=== PATIENT | male | born 1955 ===

== ENCOUNTER → 2016-04-13 | Outpatient (CLI) | payer OTHER ==
--- NOTE | 2016-04-13 11:51 | US ---
Scrotal Ultrasound History: Right testicular pain for one year, mild swelling. Comparison: None available. Findings: Right: The right testicle has homogeneous echotexture with no discrete masses, measuring 4.9 x 3.1 x 2.3 cm. Normal arterial blood flow is present in the testicle. The right epididymis is mildly hypoech oic, which can be seen with prior vasectomy. There is no hydrocele or varicocele. Left: The left testicle measures 4.1 x 3.1 x 2.2 cm. There are 2 simple cysts adjacent to or within t he rete testes, each measuring 2 mm. The testicle otherwise has homogeneous echotexture. Normal arter ial blood flow is present in the testicle. The left epididymis is mildly hypoechoic, which can be se en with prior vasectomy.. There is no hydrocele or varicocele. Blood flow is symmetric, with no evidence of hyperemia. Impression: 1. No visible etiology for the patient's symptoms. 2. Two tiny benign simple cysts in the left testicle.
== END ==
LOC: CIMAGING 10:43
PROVIDERS: ATTEND Surgery
DX: N44.2 Benign cyst of testis (principal)
CPT/HCPCS: 76870-PO